=== PATIENT | male | born 1995 | race Caucasian/White ===

== ENCOUNTER 2017-05-31 17:53 | Emergency (ER) | payer MEDICAID ==
[~2017-05-31] VITALS: Ht 162.6 cm; Wt 61.2 kg
[2017-05-31 17:53] VITALS: BP 108/66
[2017-05-31] MEDS ORDERED: diphenhydrAMINE HCL 50 MG CAPSULE ONE (18:49)
[2017-05-31] MEDS ORDERED: FAMOTIDINE (20 MG) 20 MG TABLET ONE (18:50)
[2017-05-31] MEDS ORDERED: predniSONE 20 MG TABLET ONE (18:50)
[2017-05-31] MEDS ORDERED: FAMOTIDINE (20 MG) 20 MG TABLET PO ONE (19:00)
[2017-05-31] MEDS ORDERED: predniSONE 10 MG TABLET PO ONE (19:00)
[2017-05-31] MEDS ORDERED: diphenhydrAMINE HCL 50 MG CAPSULE PO ONE (19:00)
== END 2017-05-31 19:06 | disposition home or self-care (01) ==
LOC: ER 18:00
DX: L23.9 Allergic contact dermatitis, unspecified cause (principal)
CPT/HCPCS: 99284; A4606; J7512; Q0163; Z7610

== ENCOUNTER 2017-10-18 15:35 | Emergency (ER) | payer MEDICAID ==
[~2017-10-18] VITALS: Ht 162.6 cm; Wt 61.2 kg
--- NOTE | 2017-10-18 15:46 | NUR ---
22 YO MALE BB SELF, C/O EPIGASTRIC PAIN ,FEVER, NAUSEA WEAKNESS AFTER EATING SALAD X3 DAYS. PATIENT AMBULATED TO ER EBD, SKIN WARM AND DRY, RESP EVEN AND UNLABORED. AWAITING ORDERS FROM PROVIDER
--- NOTE | 2017-10-18 15:47 | NUR ---
PRAKASH ELLIS D AGACNPBC AT BED SIDE
[2017-10-18] MEDS ORDERED: ONDANSETRON HCL/PF 4 MG/2 ML VIAL ONE (15:59)
[2017-10-18] MEDS ORDERED: IV NS 0.9% 1,000 ML BAG IV ONE (16:00)
[2017-10-18] MEDS ORDERED: ONDANSETRON HCL/PF 4 MG/2 ML VIAL IVP ONE (16:00)
--- NOTE | 2017-10-18 16:02 | NUR ---
PT TRANSPORTED TO CT BY INSULATION CUTTER AND FORMER
--- NOTE | 2017-10-18 16:18 | NUR ---
22G LEFT AC IV STARTED, BLOOD SAMPLE OBRTAINED AND SENT TO LAB. MEDICATED PT ORDERED
[2017-10-18 16:20] LABS: BASOPHILS # (AUTO) 0.1 /CMM (0.0-0.2); BASOPHILS % (AUTO) 0.3 % (0.0-2.0); EOSINOPHILS # (AUTO) 0.1 /CMM (0.0-0.7); EOSINOPHILS % (AUTO) 0.6 % (0.0-6.0); HEMATOCRIT 45 % (39-51); HEMOGLOBIN 15.6 g/dL (13.5-17.5); LYMPHOCYTES # (AUTO) 2.5 /CMM (0.8-4.8); LYMPHOCYTES % (AUTO) 14.4 % (20.0-44.0); MEAN CORPUSCULAR HEMOGLOBIN 31 PG (26.0-33.0); MEAN CORPUSCULAR HGB CONC 35 g/dl (31.0-36.0); MEAN CORPUSCULAR VOLUME 88 fL (80-96); MONOCYTES % (AUTO) 11.5 % (2.0-12.0); NEUTROPHILS # (AUTO) 12.7 /CMM (1.8-8.9); NEUTROPHILS % (AUTO) 73.2 % (43.0-81.0); PLATELET COUNT (AUTO) 269 /CMM (150-450); RDW COEFFICIENT OF VARIATION 11.7 (11.5-15.0); RED BLOOD CELL COUNT(AUTO) 5.11 MIL/uL (4.5-6.0); WHITE BLOOD COUNT (AUTO) 17.4 K/uL (4.3-11.0)
[2017-10-18] MEDS ORDERED: MAG HYDROX/AL HYDROX/SIMETH 30 ML UDC ONE (16:22)
[2017-10-18] MEDS ORDERED: LIDOCAINE VISCOUS 2% UD 15 ML UDC ONE (16:22)
[2017-10-18] MEDS ORDERED: FAMOTIDINE/PF INJ 20 MG/2 ML VIAL IV ONE ×2 (16:23→16:30)
[2017-10-18 16:28] LABS: CALCIUM, SERUM 9.2 mg/dL (8.5-10.1); CREATININE 1.2 mg/dL (0.6-1.3); POTASSIUM 4.2 mmol/L (3.5-5.1)
[2017-10-18] MEDS ORDERED: LIDOCAINE VISCOUS 2% UD 15 ML UDC MM ONE (16:30)
[2017-10-18] MEDS ORDERED: MAG HYDROX/AL HYDROX/SIMETH 30 ML UDC PO ONE (16:30)
[2017-10-18 16:32] LABS: INR 1.05 (0.85-1.15)
[2017-10-18 16:33] LABS: ALBUMIN 4.1 g/dL (3.4-5.0); BILIRUBIN,DIRECT 0.1 mg/dL (0.0-0.2); BILIRUBIN,TOTAL 0.6 mg/dL (0.2-1.0); TOTAL PROTEIN, SERUM 8.4 g/dL (6.4-8.2)
[2017-10-18 16:54] LABS: APPEARANCE,URINE CLEAR (CLEAR); BILIRUBIN,URINE NEGATIVE (NEGATIVE); BLOOD, URINE NEGATIVE Ery/uL (NEGATIVE); COLOR,URINE YELLOW (YELLOW); KETONES,URINE NEGATIVE (NEGATIVE); LEUKOCYTE ESTERASE ,URINE NEGATIVE (NEGATIVE); NITRITE, URINE NEGATIVE (NEGATIVE); PROTEIN,URINE TRACE mg/dl (NEGATIVE); UGLUCOSE NEGATIVE (NEGATIVE)
[2017-10-18] MEDS ORDERED: BISACODYL SUPP (10 MG) 10 MG/SUPP.RECT SUPP.RECT RC ONE ×2 (17:00→17:05)
[2017-10-18 17:13] LABS: BACTERIA,URINE Rare /HPF (None Seen); RBC,URINE 0-2 /HPF (0-2); SQUAMOUS EPITHELIAL CELL,UR Few /HPF (None Seen); WBC,URINE 0-2 /HPF (0-3)
[2017-10-18 17:15] VITALS: BP 111/68
--- NOTE | 2017-10-18 17:16 | NUR ---
Patient discharged to home in stable condition. Written and verbal after care instructions given. Patient verbalizes understanding of instruction.IV removed. Catheter intact and site benign. Pressure and 4x4 applied to site. No bleeding noted. PT ambulatory with a steady gait VITAL SIGNS WITHIN NORMAL LIMITS.
== END 2017-10-18 17:16 | disposition home or self-care (01) ==
LOC: ER 15:37
DX: K29.70 Gastritis, unspecified, without bleeding (principal); K59.00 Constipation, unspecified; F10.10 Alcohol abuse, uncomplicated
CPT/HCPCS: 36415; 74021; 80048; 80076; 81001; 83690; 85025; 85730; 96361; 96374; 96375; 99285; A4606; J2405; J3490; J7030; Z7610; 81000-TC

== ENCOUNTER 2019-01-01 22:02 | Emergency (ER) | payer MEDICAID ==
[~2019-01-01] VITALS: Ht 160 cm; Wt 59.0 kg
--- NOTE | 2019-01-02 00:56 | NUR ---
PT PRESENTED TO THE ER WITH A C/O RT SHOULDER PAIN. TRAPEZIUS MUSCLE APPEARS TIGHT. AREA SORE TO TOUCH AND WITH MOVEMENT. PT STATED THAT THE PAIN STARTED AROUND 0800 YESTERDAY MORNING. PT DENIES TAKING ANY PAIN MEDICATION.
--- NOTE | 2019-01-02 01:20 | NUR ---
xray taken at the bedside.
--- NOTE | 2019-01-02 02:15 | NUR ---
Patient discharged to home in stable condition. Written and verbal after care instructions given. Patient verbalizes understanding of instruction AND RX. PT AMBULATED OUT WITH A STEADY GAIT. VSS.
[2019-01-02 02:46] VITALS: BP 127/76
== END 2019-01-02 02:15 | disposition home or self-care (01) ==
LOC: ER 22:03
DX: M25.511 Pain in right shoulder (principal); X50.9XXA Other and unspecified overexertion or strenuous movements or postures, initial encounter; Y93.89 Activity, other specified; Y92.89 Other specified places as the place of occurrence of the external cause; Y99.8 Other external cause status
CPT/HCPCS: 73010-TC; 73030-TC

== ENCOUNTER 2019-10-29 07:26 | Emergency (ER) | payer SELFPAY ==
[~2019-10-29] VITALS: Ht 162.6 cm; Wt 61.2 kg
[2019-10-29] MEDS ORDERED: FAMOTIDINE (20 MG) 20 MG TABLET PO ONE (08:00)
[2019-10-29] MEDS ORDERED: predniSONE 10 MG TABLET PO ONE (08:00)
[2019-10-29] MEDS ORDERED: diphenhydrAMINE HCL 50 MG CAPSULE PO ONE (08:00)
[2019-10-29] MEDS ORDERED: diphenhydrAMINE HCL 25 MG CAPSULE ONE (08:05)
[2019-10-29] MEDS ORDERED: FAMOTIDINE (20 MG) 20 MG TABLET ONE (08:05)
[2019-10-29] MEDS ORDERED: predniSONE 20 MG TABLET ONE (08:05)
--- NOTE | 2019-10-29 08:09 | NUR ---
PT. VERBALIZED UNDERSTANDING OF AFTERCARE INSTRUCTIONS.Patient discharged to home in stable condition. Written and verbal after care instructions given. Patient verbalizes understanding of instruction.
[2019-10-29 08:10] VITALS: BP 97/55
== END 2019-10-29 08:10 | disposition home or self-care (01) ==
LOC: ER 07:30
DX: T78.40XA Allergy, unspecified, initial encounter (principal); X58.XXXA Exposure to other specified factors, initial encounter
CPT/HCPCS: 99284; J7512; Q0163